=== PATIENT | female | born 1955 | race Caucasian/White ===

== ENCOUNTER 2016-05-27 15:33 | Emergency (ER) | payer OTHER ==
[2016-05-27 15:44] VITALS: BP 113/73
--- NOTE | 2016-05-27 16:58 | Diag Imaging Result Document ---
PROCEDURE NAME: ANKLE COMPLETE RIGHT - 05/27/2016 PLAIN RADIOGRAPH OF THE RIGHT ANKLE 3 VIEWS: COMPARISON: None available. FINDINGS: The bones appear to be at least mildly osteopenic. There is a small linear defect seen at the base of the 5th metatarsal that is best appreciated on the cross-table lateral view. This suggests a small nondisplaced fracture that is probably acute. There is also irregularity involving the distal shaft of the 5th metatarsal. However, it has more of a chronic appearance. No other definite fracture, dislocation, or intrinsic osseous lesion is appreciated. There is suggestion of mild soft tissue edema about the ankle. IMPRESSION: Linear opacity at the base of the 5th metatarsal suggesting a possible acute nondisplaced fracture. Please correlate clinically. Followup plain radiograph of the right foot is recommended in 7-10 days.
--- NOTE | 2016-05-27 17:21 | PROVIDER DOCUMENTATION ---
HPI-Musculoskeletal Pain/Inj - GENERAL Chief Complaint: Extremity Injury Stated Complaint: ANKLE INJURY Time Seen by Provider: 05/27/16 16:40 Source: patient - HX OF PRESENT ILLNESS-MUSKULOSKELTAL Nature of Presenting Problem: 60 y/o F c/o R foot/ankle pain x 2 hours. Pt states that she was walking and had a misstep and heard a crack to R lateral foot. States pain with ambulation since. Denies any other sxs. Review of Systems - Adult - REVIEW OF SYSTEMS - ADULT Constitutional: reports: no symptoms reported. denies: chills, fever Eyes: reports: no symptoms reported. denies: blurred vision, double vision Ears, Nose, Mouth & Throat: reports: no symptoms reported. denies: ear pain, nose pain Cardiovascular: reports: no symptoms reported. denies: chest pain, palpitations Respiratory: reports: no symptoms reported. denies: dyspnea on exertion, shortness of breath Gastrointestinal: reports: no symptoms reported. denies: nausea, vomiting Genitourinary: reports: no symptoms reported. denies: dysuria, frequency Musculoskeletal: reports: see HPI, joint pain. denies: back pain, neck pain Integumentary: reports: no symptoms reported. denies: nail changes, rash Neurological: reports: no symptoms reported. denies: numbness, paresthesia Psychiatric: reports: no symptoms reported Endocrine: reports: no symptoms reported. denies: cold intolerance, heat intolerance Hematologic/Lymphatic: reports: no symptoms reported. denies: easy bruising, prolonged bleeding Allergic/Immunologic: reports: no symptoms reported All Other Systems: Reviewed and Negative Past History - Adult - PAST MEDICAL HISTORY-ADULT Review of Records: reports: Nursing Assessment Review, Medications Reviewed Respiratory: reports: asthma, COPD Endocrine/Immune: reports: Diabetes - PRIOR SURGERIES/PROCEDURES Surgical/Procedure History: reports: cholecystectomy, other (splenectomy) - IMMUNIZATION STATUS Childhood Immunizations: See Nurse Assessment Flu Vaccine: See Nurse Assessment - FAMILY HISTORY Family History: reviewed, not pertinent - SOCIAL HISTORY Smoking: greater than 1 pack/day Provider spent 3-5 mins advising pt. on dangers of tobacco.: Discussed manners to quit use, and f/u contacts for add'l counseling. Physical Exam-Injury Related - Physical Exam-Injury Related Initial Vital Signs Reviewed: Yes General Appearance: alert, mild distress Eyes: pink conjunctivae Head, Ears, Nose, Mouth & Throat: normocephalic/atraumatic Neck: normal inspection Cardiovascular: normal peripheral pulses, regular rate, rhythm Peripheral Pulses: dorsalis-pedis (R): 1+, dorsalis-pedis (L): 1+ Back Exam: normal inspection Extremity: normal capillary refill, swelling (lateral R ankle and lateral R foot ). negative: normal range of motion (LROM at R ankle), abnormal NV exam Integumentary: normal color, warm/dry, blanching Neurologic: negative: aphasia, sensory deficit Psych/Mental Status: normal mood/affect, normal thought content, normal thought process, oriented x 3 Progress - PLAN OF CARE/RESULTS Progress/Plan/Lab Results: Orders Category Date Time Status Gael Wrap Application DIRECTED Care 05/27/16 17:16 Active Crutches DIRECTED Care 05/27/16 17:16 Inactive Post-Op Shoe DIRECTED Care 05/27/16 17:16 Active ANKLE COMPLETE RIGHT [RAD] Stat Exams 05/27/16 15:47 Completed Vital Signs Temp Pulse Resp BP Pulse Ox 05/27/16 15:42 98.9 F 96 H 20 113/73 92 L No Known Allergies Allergy (Verified 05/27/16 16:41) Albuterol [Albuterol Neb] 2.5 mg INH Q4HR 04/30/15 Calcium Carb, Citrate/Vit D3 [Calcium + D3 ER Tablet] 1 each PO BID 04/30/15 Citalopram Hydrobromide [Citalopram HBr] 20 mg PO QAM 04/30/15 Furosemide [Lasix] 20 mg PO QAM 04/30/15 Gabapentin 300 mg PO BID 04/30/15 Insulin Glargine,Hum.rec.anlog [Lantus Solostar] 45 unit SQ QHS 04/30/15 Metformin HCl 1,000 mg PO BID 04/30/15 Mirtazapine 15 mg PO QHS 04/30/15 Omeprazole 20 mg PO QAM 04/30/15 Roflumilast [Daliresp] 500 mcg PO QHS 04/30/15 Rosuvastatin Calcium [Crestor] 40 mg PO QHS 04/30/15 Sitagliptin Phosphate [Januvia] 100 mg PO QHS 04/30/15 Solifenacin [Vesicare] 5 mg PO QAM 04/30/15 Tiotropium [place] Inhaler [Spiriva] 1 puff INH DAILY PRN 04/30/15 Zolpidem Tartrate 5 mg PO QHS 04/30/15 Nicotine Patch [Nicoderm Patch] 14 mg TD DAILY PRN PRN #30 patch.td24 01/31/16 Hydrocodone/APAP 7.5 mg/325 mg [[place]-7.5] 1 each PO BID PRN #20 tablet Fluticasone/Vilanterol [Breo Ellipta 100-25 Mcg INH] 1 inh INH DAILY 05/27/16 Tramadol/APAP [Ultracet 37.5MG/325Mg] 1 each PO Q6H PRN PRN #10 tablet 05/27/16 Discussed tx and f/u with pt. - XRAY 1 XRAY: Right XRAY Study: Ankle Impression: See EMR Report (Linear opacity at the base of the 5th metatarsal suggesting a possible acute nondisplaced fracture. Please correlate clinically. Followup plain radiograph of the right foot is recommended in 7-10 days. -per Dr. Henson) Procedures - SPLINTING Right Lower Extremity Pre-Procedure Neurovascular Exam: Intact Pre-Fabricated Splint: Gael Wrap Applied By: card player Post Procedure Neurovascular Exam: Intact Procedure Comment: Pt tolerated well Departure - Departure Time of Disposition Order: 17:18 DIAGNOSIS: Ankle sprain Qualifiers: Encounter type: initial encounter Involved ligament of ankle: unspecified ligament Laterality: right Qualified Code(s): S93.401A - Sprain of unspecified ligament of right ankle, initial encounter Fracture of 5th metatarsal Qualifiers: Encounter type: initial encounter Fracture type: closed Fracture alignment: nondisplaced Laterality: right Qualified Code(s): S92.354A - Nondisplaced fracture of fifth metatarsal bone, right foot, initial encounter for closed fracture Disposition: HOME 01 Certified Medical Emergency: Emergent Condition: Stable Additional Instructions: RICE often and f/u with specialist tomorrow for further management. Take medications as directed. ED Follow Up Instructions: You have been treated by a care provider in the Emergency Department. These instructions are being provided to you so you can have an understanding of how to care for yourself upon discharge. Upon discharge from the Emergency Department, you are responsible for making arrangements for follow-up care by a physician of your choice. Take all prescribed medications as directed. Return to the Emergency Department immediately for any new or worsening symptoms. You may call the Physician Referral phone number at [phone] to obtain a list of Physicians who are taking new patients. Prescriptions: Tramadol/APAP [Ultracet 37.5MG/325Mg] 1 each PO Q6H PRN PRN #10 tablet PRN Reason: Pain Referrals: Pancho Bartlett MD [Primary Care Provider] - Finesse Griffin MD [STAFF PHYSICIAN] - Instructions: Ankle Sprain, [id number], Metatarsal Fracture Attestation - Physician/ BOBBY Attestation Patient care was provided by Advanced Practice Provider:: Yes Advanced Practice Provider:: Estefanía Narayan Advanced Practice Provider documentation review:: The Mid-level provider documentation, treatment plan and medical decision making was reviewed by the physician who agrees with all treatment and medical decision making by the MLP.
== END 2016-05-27 18:08 | disposition home or self-care (01) ==
LOC: ED 15:33
DX: S92.354A Nondisplaced fracture of fifth metatarsal bone, right foot, initial encounter for closed fracture (principal); S93.401A Sprain of unspecified ligament of right ankle, initial encounter; M79.671 Pain in right foot; M25.571 Pain in right ankle and joints of right foot; M25.471 Effusion, right ankle; R22.41 Localized swelling, mass and lump, right lower limb; J45.909 Unspecified asthma, uncomplicated; J44.9 Chronic obstructive pulmonary disease, unspecified; Z79.899 Other long term (current) drug therapy; E11.9 Type 2 diabetes mellitus without complications; F17.210 Nicotine dependence, cigarettes, uncomplicated; Z71.6 Tobacco abuse counseling; Z90.81 Acquired absence of spleen; X58.XXXA Exposure to other specified factors, initial encounter